=== PATIENT | female | born 1950 | race Caucasian/White ===

== ENCOUNTER 2022-03-26 03:21 | Emergency (ER) | payer MEDICARE, BC ==
[2022-03-26] VITALS (9 sets, daily range): BP systolic 157–180; BP diastolic 78–95
[~2022-03-26] VITALS: Ht 162.6 cm; Wt 79.0 kg
[~2022-03-26 03:21] MED LIST: ASPIRIN LOW DOS81 MG; BENADRYL; MACROBID100 MG PO; ZYRTEC10 M5
[2022-03-26 04:04] LABS: HEMATOCRIT 42.2 % (37.0-47.0); IMMATURE GRANULOCYTES 0.4 % (0.0-5.0); MEAN CELL VOLUME 86.8 fL CALC (80.0-100.0); MEAN CORPUSCULAR HGB 28.8 pG CALC (26.0-32.0); MEAN CORPUSCULAR HGB CONC 33.2 g/dL CAL (32.0-36.0); NEUT# 9.18 thou/uL (2.00-7.15); RED BLOOD COUNT 4.86 mill/uL (4.20-5.60); RED CELL DISTRI WIDTH 14.1 % (11.5-15.5)
[2022-03-26 04:13] LABS: URINE BILIRUBIN - DIPSTICK NEGATIVE (NEGATIVE); URINE BLOOD DIPSTICK TRACE-INTACT (NEGATIVE); URINE COLOR YELLOW; URINE GLUCOSE - DIPSTICK NEGATIVE (NEGATIVE); URINE KETONE TRACE mg/dL (NEGATIVE); URINE LEUK ESTERASE NEGATIVE (NEGATIVE); URINE NITRITE - DIPSTICK NEGATIVE (Negative); URINE PH 5.5 (4.5-8.0); URINE PROTEIN - DIPSTICK NEGATIVE (NEG-TRACE); URINE UROBILINOGEN - DIPSTICK 0.2 E.U./dL (0.2)
[2022-03-26 04:23] LABS: ALKALINE PHOSPHATASE 90 u/l (38-126); ANION GAP 10 (6-22 (CALC)); BILIRUBIN, TOTAL 0.5 mg/dL (0.0-1.4); BUN 16 mg/dL (8-23); BUN/CREATININE RATIO 19 (12-20 (CALC)); CARBON DIOXIDE 25 mmol/l (22-30); CHLORIDE 100 mmol/l (95-108); CREATININE 0.8 mg/dL (0.5-1.0); GFR > 60 ML/MIN (>=60 (CALC)); GFR FOR AFR.AMER. > 60 ML/MIN (>=60 (CALC)); SGOT/AST 29 u/l (9-36); SODIUM 131 mmol/l (137-146); TOTAL PROTEIN 6.7 g/dL (6.3-8.2)
[2022-03-26 04:25] LABS: ACT PARTIAL THROMBO TIME 23.9 SECONDS (20.0-32.5); PROTHROMBIN TIME 10.4 SECONDS (9.0-12.5)
[2022-03-26] MEDS ORDERED: IMODIUM2 MG PO (06:25)
== END 2022-03-26 06:34 | disposition home or self-care (01) ==
LOC: ED 03:21
PROVIDERS: Family Medicine
DX: K62.5 Hemorrhage of anus and rectum (principal); K58.9 Irritable bowel syndrome, unspecified; Z85.3 Personal history of malignant neoplasm of breast
CPT/HCPCS: Q9967